=== PATIENT | female | born 1930 | race Caucasian/White ===

== ENCOUNTER 2017-04-05 06:46 | Inpatient (IN) | payer OTHER ==
[~2017-04-05 06:46] MED LIST: ACETAMINOPHEN 325 MG TAB PO ONE; DEXAMETHASONE 4 MG/ML VIAL IVP ONE; FAMOTIDINE 20 MG TAB PO ONE; ROPIVACAINE 0.2% 80 MG, EPINEPHrine 0.2 MG in SYRINGE 0 ML IU ONE; ROPIVACAINE 0.2% 80 MG, EPINEPHrine 0.2 MG, KETOROLAC TROMETHAMINE 30 MG in SYRINGE 0 ML IU ONE; TRANEXAMIC ACID 3,000 MG in NS 50 ML IRR ONE; ceFAZolin 2 GM/SWFI 2 GM/20 ML SYR IVP ONE
[2017-04-05] MEDS ORDERED: ACETAMINOPHEN 325 MG TAB PO ONE (07:21)
[2017-04-05] MEDS ORDERED: FAMOTIDINE 20 MG TAB PO ONE (07:21)
[2017-04-05] MEDS ORDERED: ceFAZolin 2 GM/SWFI 2 GM/20 ML SYR IVP ONE (07:21)
[2017-04-05] MEDS ORDERED: DEXAMETHASONE 4 MG/ML VIAL IVP ONE (07:21)
[2017-04-05] MEDS ORDERED: LIDOCAINE 1% 2 ML INJ ID PRN (07:22)
[2017-04-05] MEDS ORDERED: LR 1,000 ML IV ONE (07:22)
--- NOTE | 2017-04-05 07:24 | PDHPUP ---
History & Physical Update H&P update statement: This history and physical update is based on an assessment of the patient which was completed after admission or registration (within 24 hours), but prior to the surgery/procedure. H&P update: H&P reviewed & patient examined, no change in patient's condition since H&P completed
[2017-04-05] MEDS ORDERED: TRANEXAMIC ACID 3,000 MG/50 ML BAG IRR ONE (07:57)
[2017-04-05] MEDS ORDERED: MIDAZOLAM 2 MG/2 ML VIAL ONE (08:53)
[2017-04-05] MEDS ORDERED: MIDAZOLAM 2 MG/2 ML VIAL IVP ONE (08:53)
[2017-04-05] MEDS ORDERED: fentaNYL 100 MCG/2 ML INJ ONE ×2 (08:55→11:33)
[2017-04-05] MEDS ORDERED: PROPOFOL 200 MG/20 ML VIAL ONE ×3 (08:56→09:55)
[2017-04-05] MEDS ORDERED: PHENYLEPHRINE HCL 100 MCG/ML SYR IVP PRN (09:31)
[2017-04-05] MEDS ORDERED: DEXAMETHASONE 4 MG/ML VIAL IVP PRN (09:31)
[2017-04-05] MEDS ORDERED: NALOXONE HCL 0.4 MG/ML INJ IVP PRN (09:31)
[2017-04-05] MEDS ORDERED: HYDROmorphONE/DILAUDID 1 MG/ML INJ IVP PRN (09:31)
[2017-04-05] MEDS ORDERED: ALBUTEROL 3 ML DEYVIAL IH PRN (09:31)
[2017-04-05] MEDS ORDERED: fentaNYL 100 MCG/2 ML INJ IVP PRN (09:31)
[2017-04-05] MEDS ORDERED: epHEDrine SULFATE 10 MG/ML SYR IVP PRN (09:31)
--- NOTE | 2017-04-05 09:46 | PDANEPAE ---
ANE History of Present Illness here for R MARIO ANE Past Medical History - Cardiovascular History Hx Hypertension: Yes Hx Arrhythmias: No Hx Chest Pain: No Hx Coronary Artery / Peripheral Vascular Disease: No Hx CHF / Valvular Disease: No Hx Palpitations: Yes Cardiovascular History Comment: NO RECENT PALPITATIONS SINCE TAKING CARDIZEM. HYPERLIPIDEMIA - Pulmonary History Hx COPD: No Hx Asthma/Reactive Airway Disease: Yes Hx Recent Upper Respiratory Infection: No Hx Oxygen in Use at Home: No Hx Sleep Apnea: Yes Sleep Apnea Screening Result - Last Documented: Positive Pulmonary History Comment: SEASONAL ALLERGIES W/ASTHMA IN [place]. POS SLEEP APNEA W/NITE-GUARD - Neurologic History Hx Cerebrovascular Accident: No Hx Seizures: No Hx Dementia: No - Endocrine History Hx Diabetes: Yes Endocrine History Comment: HYPOTHYROID - Renal History Hx Renal Disorders: Yes Renal History Comment: ELEV CREATININE LEVELS IN PAST - Liver History Hx Hepatic Disorders: No - Neurological & Psychiatric Hx Hx Neurological and Psychiatric Disorders: No - Cancer History Hx Cancer: No - Congenital Disorder History Hx Congenital Disorders: No - GI History Hx Gastrointestinal Disorders: Yes Gastrointestinal History Comment: TAKES LACTASE & ACIDOPHYLLUS WORKS TO SETTLE STOMACH - Other Health History Other Health History: OSTEOARTHRITIS. RHEUMATOID ARTHRITIS - Chronic Pain History Chronic Pain: Yes (OSTEOARTHRITIS HIP & BACK) - Surgical History Prior Surgeries: HERNIA. PARTIAL RIB RESECTION ANE Review of Systems Review of systems is: negative Review of Systems: - Exercise capacity Exercise capacity: <4 METS METS (RN): 4 METS ANE Patient History - Allergies Allergies/Adverse Reactions: alendronate sodium [From Fosamax] Allergy (Verified 03/09/17 11:33) ULCERS denosumab [From Prolia] Allergy (Verified 03/09/17 11:33) Anaphylaxis risedronate sodium [From Actonel] Allergy (Verified 03/09/17 11:33) ULCERS - Home Medications Home medications: home medication list seen and reviewed Home Medications: Albuterol [Proventil Inhaler HFA (*)] 1 - 2 puffs IH DAILY PRN 03/09/17 [Last Taken Unknown] Calcium Carbonate [Oyster Shell Calcium 500 mg (*)] 500 mg PO DAILY 03/09/17 [ Last Taken 03/29/17] Diltiazem Cd [Cardizem ER 120 MG (*)] 120 mg PO BID 03/09/17 [Last Taken 05:00] Hydrocodone/APAP 5/325 [[place]leans 5/325 (*)] 0.5 each PO TID PRN 03/09/17 [Last Taken 04/04/17 19:00] Lactase [Lactase 3000 Unit (*)] 3,000 unit PO DAILY 03/09/17 [Last Taken 08:00] Leflunomide [Arava 20 mg (*)] 20 mg PO DAILY 03/09/17 [Last Taken 04/04/17 08:00 ] Levothyroxine [Synthroid 50 mcg (*)] 50 mcg PO DAILY06 03/09/17 [Last Taken 05:00] Lisinopril [Zestril 20 mg (*)] 20 mg PO DAILY 03/09/17 [Last Taken 04/04/17 08: 00] Montelukast Sodium [Singulair 10 mg (*)] 10 mg PO DAILY@1800 03/09/17 [Last Taken 04/04/17 08:00] Multivitamins [Multivitamin (*)] 1 each PO DAILY 03/09/17 [Last Taken 03/29/17] guanFACINE HCL [Guanfacine HCl 1 MG (*)] 1 mg PO HS 03/09/17 [Last Taken 22:00] - NPO status NPO Status: no food or drink >8 hours NPO Since - Liquids (Date): 04/04/17 NPO Since - Liquids (Time): 19:00 NPO Since - Solids (Date): 04/04/17 NPO Since - Solids (Time): 19:00 - Smoking Hx Smoking Status: Former smoker - Family Anes Hx Family Hx Anesthesia Complications: NEG ANE Labs/Vital Signs - Vital Signs Vital Signs: reviewed preoperatively; see RN documention for details Blood Pressure: 145/93 Heart Rate: 80 Respiratory Rate: 20 O2 Sat (%): 91 Height: 152.4 cm Weight: 50.802 kg ANE Physical Exam - Airway Neck exam: FROM Mallampati Score: Class 1 - Pulmonary Pulmonary: no respiratory distress - Cardiovascular Cardiovascular: regular rate and rhythym - ASA Status ASA Status: II ANE Anesthesia Plan Anesthesia Plan: spinal
[2017-04-05] MEDS ORDERED: ALBUTEROL 60 PUFFS/8 GM MDI IH PRN (10:14)
[2017-04-05] MEDS ORDERED: PROMETHAZINE HCL 25 MG/ML INJ IVP PRN (10:32)
[2017-04-05] MEDS ORDERED: TEMAZEPAM 15 MG CAP PO PRN (10:32)
[2017-04-05] MEDS ORDERED: diphenhydrAMINE 25 MG CAP PO PRN (10:32)
[2017-04-05] MEDS ORDERED: POLYETHYLENE GLYCOL 3350 17 GM PKT PO PRN (10:32)
[2017-04-05] MEDS ORDERED: DIPHENOXYLATE/ATROPINE LOMOTIL 1 TAB PO PRN (10:32)
[2017-04-05] MEDS ORDERED: CYCLOBENZAPRINE 10 MG TAB PO PRN (10:32)
[2017-04-05] MEDS ORDERED: PROMETHAZINE HCL 25 MG SUPPR PR PRN (10:32)
[2017-04-05] MEDS ORDERED: MAGNESIUM HYDROXIDE 30 ML UDCUP PO PRN (10:32)
[2017-04-05] MEDS ORDERED: LACTULOSE 20 GM/30 ML UDCUP PO PRN (10:32)
[2017-04-05] MEDS ORDERED: METOCLOPRAMIDE 10 MG/2 ML VIAL IVP PRN (10:32)
[2017-04-05] MEDS ORDERED: BISACODYL 10 MG SUPP PR PRN (10:32)
[2017-04-05] MEDS ORDERED: ONDANSETRON DISINTEGRATING 4 MG TAB PO PRN (10:32)
[2017-04-05] MEDS ORDERED: ONDANSETRON 4 MG/2 ML VIAL IVP PRN (10:32)
--- NOTE | 2017-04-05 10:32 | POSTOPPROG ---
Post Op Note Date of Operation: 04/05/17 Surgeon: Howie Sparrow Wood Boring Machine Operator: dianne sparrow Anesthesiologist: dr chinchilla Anesthesia: Spinal Pre-op Diagnosis: Right hip OA Post-op Diagnosis: same Indication: right hip pain due to OA that failed conservative measures Procedure: R MARIO ant approach Findings: severe hip OA Inf/Abcess present in the surg proc area at time of surgery?: No EBL: 100-500
[2017-04-05] MEDS ORDERED: LR 1,000 ML IV SCH (11:00)
[2017-04-05] MEDS: ACETAMINOPHEN 325 MG TAB PO SCH ×3 (13:24→23:35)
[2017-04-05] MEDS: oxyCODONE IR 5 MG TAB PO PRN ×2 (13:25→23:37)
[2017-04-05] MEDS ORDERED: ceFAZolin 2 GM/DEXTROSE 100 ML IV SCH (14:00)
--- NOTE | 2017-04-05 14:08 | POSTANESTH ---
Post Anesthetic Evaluation Cardiovascular Status: Normal, Stable Respiratory Status: Normal, Stable Level of Consciousness/Mental Status: Can Participate in Eval Pain Control: Adequate, Prn Tx Ordered Nausea/Vomiting Control: Adequate, Prn Tx Ordered Complications Possibly Related to Anesthesia: None Noted
[2017-04-05] MEDS: ceFAZolin 2 GM/SWFI 2 GM/20 ML SYR IVP SCH ×2 (16:19→23:36)
--- NOTE | 2017-04-05 17:08 | ASMTCMCOM ---
CM Note CM Note Notes: Referrals sent to [facility] and [facility] in [facility] as pt indicated theses were her SNF preferences in surgery pre-call. Pt indicated interest in [facility] also but they not take pt [employer] Plan. CM to follow up with pt tomorrow. Insurance authorization may be required for SNF d/c. Date Signed: 04/05/2017 05:08 PM Electronically Signed By:LUIS ANTONIO Casiano
[2017-04-05] MEDS ORDERED: MONTELUKAST SODIUM 10 MG PO SCH (18:00)
[2017-04-05] MEDS ORDERED: MONTELUKAST SODIUM 10 MG TAB PO SCH (18:00)
[2017-04-05] MEDS: FAMOTIDINE 20 MG TAB PO SCH (20:26)
[2017-04-05] MEDS: ASPIRIN 81 MG CHEWABLE TAB PO SCH (20:26)
[2017-04-05] MEDS: SENNOSIDES/DOCUSATE SODIUM TAB PO SCH (20:26)
[2017-04-05] MEDS: DILTIAZEM CD 120 MG CAP PO SCH (20:27)
--- NOTE | 2017-04-06 02:40 | GOP ---
[f rep st] OPERATIVE REPORT DATE OF OPERATION: 04/05/2017 SURGEON: Radha Phelps MD OFFICE COMMUNICATION PROFESSOR: Melanie Phelps PA-C ANESTHESIA: Spinal. PREOPERATIVE DIAGNOSIS: Right hip osteoarthritis. POSTOPERATIVE DIAGNOSIS: Right hip osteoarthritis. PROCEDURE PERFORMED: Right total hip arthroplasty with x-ray. FINDINGS: ESTIMATED BLOOD LOSS: 200 cc. INDICATIONS: The patient has progressively worsening arthritis of the hip which has failed medical management. The patient understands the treatment options including continued non-operative care and has selected surgical intervention. The patient has decided to undergo total hip arthroplasty via the direct anterior approach, understanding the risks of the procedure including , but not limited to, neurovascular injury, infection, persistent pain, component wear and loosening, deep venous thrombosis, pulmonary embolism, limb length inequality, hip instability (including dislocation), and intra-operative fractures. DESCRIPTION OF PROCEDURE: After proper identification of the patient including verification and marking the surgical site, the patient was brought to the operating room and placed in the supine position. All bony prominences were well padded. Anesthesia was induced without complication and intravenous prophylactic antibiotics were administered prior to skin incision. The operative leg was placed in the Trumpf Arch table extension and the well leg in a Yellofin leg redmond. The patient was prepped and draped in the usual sterile fashion. The C-arm was draped for intra-operative fluoroscopy to check acetabular position, femoral component position including leg length and femoral offset. Attention was then drawn to surgical exposure of the hip. An incision was made with a #10 Bard Nick blade starting 3 cm lateral and 3 cm distal to the anterior superior iliac spine measuring 8-10 cm and coursing distally toward the greater trochanter. The skin and subcutaneous tissues were divided sharply down to the fascia giovanna. The fascia giovanna was incised in line with the skin incision exposing the underlying tensor fascia giovanna muscle. The muscle was bluntly elevated from the fascia and the first extracapsular Cobra retractor was placed laterally at the junction of the superior femoral neck and greater trochanter. The lateral femoral circumflex vessels were identified, cauterized , and divided with the Aquamantys bipolar cautery. The deep investing fascia of the TFL was divided to allow proper mobilization of the muscle preventing damage during the retraction. The reflected head of the rectus femoris muscle was elevated off the anterior hip capsule and a medial Cobra retractor was placed just proximal to the lesser trochanter. The anterior capsulotomy was made sharply from the superolateral acetabulum to the saddle junction of the superior femoral neck and greater trochanter, then coursing inferomedial towards the lesser trochanter. The retractors were then placed in the intracapsular position for femoral neck osteotomy. Corresponding to pre-operative templating, the osteotomy was made with the oscillating saw carefully protecting the greater trochanter and soft tissues. The femoral head was removed from the acetabulum with a corkscrew and confirmed to be severely arthritic with exposed bone, deformity and osteophytes. Similar findings were confirmed in the acetabulum. The Arch table extension was then placed in 40 degrees external rotation. Attention was then drawn to the acetabular preparation. After placement of the anterior and posterior Cobra retractors outside the labrum and intracapsular, the circumferential labrum was removed sharply. The foveal contents were then removed and hemostasis obtained with cautery. The first reamer selected was sized using the removed femoral head. Reaming began with medialization and then commenced in 2 mm increments at 45 degrees of abduction and 15 degrees of anteversion using fluoroscopic navigation. Reaming ceased 1 mm less than the definitive acetabular component and corresponded to the pre-operative templating. The final acetabular component was inserted using fluoroscopy to achieve proper orientation yielding excellent purchase and stability in the acetabulum. The final acetabular liner was then placed and its seating confirmed. Attention was then turned to the femur. The Arch table extension was placed in extension and adduction, delivering the osteotomized femoral neck into the wound. A 2-pronged femoral elevator was placed at the calcar and another at the tip of the greater trochanter. The posterolateral capsule was released with cautery allowing mobilization of the femur lateral and anterior for preparation. The external rotators were visualized and preserved. A curette and rongeur were used to open the starting point for broaching. Serial broaching started with the #0 broach and ended with the broach that exhibited excellent fit in the proximal femur. A change in pitch during mallet strikes was accompanied by the inability to advance the broach any further. The trial reduction was performed and fluoroscopic navigation was utilized to check limb length. Adjustments were made to equalize limb length accordingly. After the final trials were accepted they were removed and the wound was copiously lavaged. The femoral component was seated to the same depth as the final broach and the femoral head was impacted onto the clean trunnion. The hip was then reduced for the final time and once more fluoroscopy was used to check that limb length equality was achieved. The wound was irrigated and closed in layers, the fascia giovanna with 2-0 Quill, the subcutaneous tissue with 2-0 Quill, and the skin with Dermabond. Sterile dressings were applied. Final sharps and sponge counts were accurate. The patient was then transferred to a hospital bed and brought to the recovery room in stable condition. IMPLANTS: Accolade II, size 5 at 127. Acetabular component a 52 mm Tritanium. Liner is a Trident X3, 32 mm. The head is a Biolox Delta, 32 mm -4. /[id number]/MODL MTDD
[2017-04-06] MEDS: oxyCODONE IR 5 MG TAB PO PRN ×3 (02:54→14:54)
[2017-04-06] MEDS: ACETAMINOPHEN 325 MG TAB PO SCH ×2 (05:37→11:42)
[2017-04-06] MEDS ORDERED: LEVOTHYROXINE 50 MCG TAB PO SCH (06:00)
--- NOTE | 2017-04-06 08:26 | GDS ---
[f rep st] DISCHARGE SUMMARY ADMISSION DIAGNOSIS: Right hip osteoarthritis. DISCHARGE DIAGNOSIS: Right hip osteoarthritis. PROCEDURE: Right total hip arthroplasty. VTE PROPHYLAXIS: Aspirin 81 mg twice daily for 4 weeks recommended. BRIEF DESCRIPTION OF HOSPITAL STAY: Patient was admitted for an elective joint arthroplasty. The pa sterling tolerated the procedure well and has passed physical therapy. The patient was given appropriat e antibiotic prophylaxis and venous thromboembolism prophylaxis. The patient's pain was well control led on oral pain medication, patient was holding down food, and had urinated. Decision was made to d ischarge the patient. The patient was given post-operative prescriptions pre-operatively. PLAN: Please follow up as scheduled, April 27 at 11:15 a.m. /[id number]/MODL
--- NOTE | 2017-04-06 08:49 | PDIAF ---
- Diagnosis Diagnosis: s/p R MARIO Code Status: Full Code - Medication Management Discharge Medications: Medications to Continue on Transfer Albuterol [Proventil Inhaler HFA (*)] 1 - 2 puffs IH DAILY PRN 03/09/17 [Last Taken Unknown] Calcium Carbonate [Oyster Shell Calcium 500 mg (*)] 500 mg PO DAILY 03/09/17 [ Last Taken 03/29/17] Diltiazem Cd [Cardizem ER 120 MG (*)] 120 mg PO BID 03/09/17 [Last Taken 05:00] Lactase [Lactase 3000 Unit (*)] 3,000 unit PO DAILY 03/09/17 [Last Taken 08:00] Leflunomide [Arava 20 mg (*)] 20 mg PO DAILY 03/09/17 [Last Taken 04/04/17 08:00 ] Levothyroxine [Synthroid 50 mcg (*)] 50 mcg PO DAILY06 03/09/17 [Last Taken 05:00] Lisinopril [Zestril 20 mg (*)] 20 mg PO DAILY 03/09/17 [Last Taken 04/04/17 08: 00] Montelukast Sodium [Singulair 10 mg (*)] 10 mg PO DAILY@1800 03/09/17 [Last Taken 04/04/17 08:00] Multivitamins [Multivitamin (*)] 1 each PO DAILY 03/09/17 [Last Taken 03/29/17] guanFACINE HCL [Guanfacine HCl 1 MG (*)] 1 mg PO HS 03/09/17 [Last Taken 22:00] Acetaminophen [Tylenol 325mg (*)] 650 mg PO Q6HRS tab 04/06/17 [Last Taken Unknown] Aspirin [Aspirin 81mg (*)] 81 mg PO BID tab.chew 04/06/17 [Last Taken Unknown] Cyclobenzaprine [Flexeril 10 MG (*)] 10 mg PO Q8HRS PRN tab 04/06/17 [Last Taken Unknown] Ondansetron Odt [Zofran Odt 4 mg (*)] 4 mg PO Q4HRS PRN tab 04/06/17 [Last Taken Unknown] Sennosides/Docusate Sodium [Senokot-S] 1 - 2 tab PO BID tab 04/06/17 [Last Taken Unknown] oxyCODONE IR [Oxycodone Ir (*)] 5 - 10 mg PO Q3HRS PRN tab 04/06/17 [Last Taken Unknown] Discharge Medications: Refer to the Discharge Home Medication list for PRN reason. - Orders Diet Recommendation: no restrictions on diet Diet Texture: Regular Texture Diet Additional: Joint Protocol-Hip Replacement. Follow up with Dr. Harden office as scheduled. After surgery instructions: Take Aspirin 81mg by mouth morning and evening for 4 weeks (helps to prevent blood clots). Wear thigh high BIBIANA hose on both legs during the daytime for 2 weeks (helps to prevent blood clots and decrease swelling in the surgical leg). It is ok to remove BIBIANA hose at night time to give your legs a break. It is common for swelling and bruising to occur in the entire surgical leg even extending to the foot, if concerned call Dr. Collier office [phone]. Weight bearing as tolerated. Use a walker for 7-14 days. Do exercises in the book 2-3 times a day. Ice at least 3-5 times a day for 30 minutes each time, if not more often. If you have further questions that are not addressed here, please look at the information packet handed to you at the preop appointment. Most will be answered on the FAQs, after surgery instructions and incision care pages. You may also call Dr. Dereck arndt with questions as well. *IF YOU HAVE A LIFE THREATENING EMERGENCY, CALL 911. FOR NON-LIFE THREATENING ISSUES, PLEASE CALL DR. HARDEN OFFICE FIRST. A PHYSICIAN IS PYROTECHNIST 03/10. Incision/ Dressing Care: May shower tomorrow, Incision dressing is waterproof. Do not soak in water, but shower is ok. Keep the incision (rivas) dressing clean and dry. If the incision dressing gets soiled or wet underneath, change dressing to the dressing given to you by the hospital. (rivas dressing will turn black if drainage occurs). Remove incision dressing (rivas one) two weeks after surgery. Leave steri strips alone. They will fall off on their own. Do not have anyone else remove the incision dressing prior to the stated recommendation (2 weeks after surgery). If there are incision concerns, contact Dr. Collier office. (Melanie or Dr. Phelps may remove earlier if concerns arise). If incision site (rivas dressing) has drainage, call Dr. Collier office, . Melanie and Dr. Phelps may ask you to come into the office for further evaluation - Follow Up Care Current Providers and Referrals: Julia Miller MD [Primary Care Provider] - Melanie Phelps PA [Physician Central Office Associate] - 04/27/17 11:15 am
--- NOTE | 2017-04-06 08:57 | SOAPPROG ---
SOAP Progress Note Assessment/Plan: Assessment: Patient is doing well POD 1 s/p R MARIO Pain management: pain is well controlled on oral pain meds. VTE ppx: recommend aspirin 81 mg BID for 4 weeks, cont BIBIANA and SCDs Anemia: level is expected initially postop. Asymptomatic. Continue to monitor D/c planning: d/c to home today pending release from PT postop urinary retention: straight cath'd yesterday, resolved today Plan: 04/06/17 08:56 Subjective: Nunu is doing well today, denies SOB, chest pain and N/V. Objective: Vital Signs Temp Pulse Resp BP Pulse Ox 36.9 C 73 18 153/78 H 92 04/06/17 08:00 04/06/17 08:00 04/06/17 08:00 04/06/17 08:00 04/06/17 08:00 Laboratory Results 04/06/17 05:12 04/06/17 05:12 04/05/17 04/06/17 04/07/17 05:59 05:59 05:59 Intake Total 2750 700 Output Total 1650 Balance 1100 700 RLE: incision dressing is clean and dry, NVI, +pf/df ICD10 Worksheet Patient Problems: Problems Problem Status Onset Primary localized osteoarthritis of right hip Acute
[2017-04-06] MEDS: FAMOTIDINE 20 MG TAB PO SCH (09:00)
[2017-04-06] MEDS ORDERED: LEFLUNOMIDE 20 MG TAB PO SCH (09:00)
[2017-04-06] MEDS: SENNOSIDES/DOCUSATE SODIUM TAB PO SCH (09:00)
[2017-04-06] MEDS ORDERED: LISINOPRIL 20 MG TAB PO SCH (09:00)
[2017-04-06] MEDS: DILTIAZEM CD 120 MG CAP PO SCH (09:00)
[2017-04-06] MEDS: ASPIRIN 81 MG CHEWABLE TAB PO SCH (09:00)
--- NOTE | 2017-04-06 10:02 | ASMTCMCOM ---
CM Note CM Note Notes: Pt accepted at first choice SNF [facility] pending insurance auth. D/c orders are in and transport can be scheduled when the ins auth is obtained. Pt and RN updated. CM to follow. Date Signed: 04/06/2017 10:01 AM Electronically Signed By:LUIS ANTONIO Casiano
[2017-04-06 11:59] VITALS: BP 139/79; PULSE 87; RESP 16; TEMP 97.7; O2SAT 91
--- NOTE | 2017-04-06 16:38 | ASDISCHSUM ---
Discharge Information Plan Status:SNF Medically Cleared to Leave: Discharge Date:04/06/2017 03:12 PM CM D/C Disposition:Nursing Home Facility ADT D/C Disposition:Nursing Home Facility Projected Discharge Date:04/06/2017 11:00 AM Transportation at D/C:Wheelchair Van Discharge Delay Reason: Follow-Up Date:04/06/2017 11:00 AM Discharge Slot: Final Diagnosis: Placement Information Referral Type:*Longterm/SNF Referral ID:[id number] Provider Name:[facility]//[facility] Address 1:[address] [place] [address] Address 2: City:[place] Selection Factors: State:[place] Patient Contact Information Contact Name:SETH Relationship:Mai Address: Work Phone: City: [facility] Phone: State/Zip Code: Email: Financial Information Financial Class:Medicare Advantage Plans Primary Plan Desc:EMILY ARANGO MEDICARE Primary Plan Number:[id number] Secondary Plan Desc: Secondary Plan Number: Assessment Information [facility] CM Progress Note CM Note CM Note Notes: Referrals sent to [facility] and [facility] in [facility] as pt indicated theses were her SNF preferences in surgery pre-call. Pt indicated interest in [facility] also but they not take pt Emily Campos CM to follow up with pt tomorrow. Insurance authorization may be required for SNF d/c. Date Signed: 04/05/2017 05:08 PM Electronically Signed By:LUIS ANTONIO Casiano [facility] CM Progress Note CM Note CM Note Notes: Pt accepted at first choice SNF [facility] pending insurance auth. D/c orders are in and transport can be scheduled when the ins auth is obtained. Pt and RN updated. CM to follow. Date Signed: 04/06/2017 10:01 AM Electronically Signed By:LUIS ANTONIO Casiano [facility] CM Progress Note CM Note CM Note Notes: [facility] receives ins auth, transport scheduled for 15:00. Orders sent in [employer]. Date Signed: 04/06/2017 04:37 PM Electronically Signed By:LUIS ANTONIO Casiano Intervention Information
== END 2017-04-06 15:12 | DRG 470 ==
LOC: F3N 06:46
PROVIDERS: ADMIT Orthopaedic Surgery; ATTEND Orthopaedic Surgery
PROC: 0SR904Z Replacement of Right Hip Joint with Ceramic on Polyethylene Synthetic Substitute, Open Approach (ICD-10-PCS; principal; 2017-04-05 09:15)
DX: M16.11 Unilateral primary osteoarthritis, right hip (principal); I10 Essential (primary) hypertension; E78.5 Hyperlipidemia, unspecified; J45.909 Unspecified asthma, uncomplicated; E11.9 Type 2 diabetes mellitus without complications; E03.9 Hypothyroidism, unspecified
CPT/HCPCS: 97116-GP; 97161-GP; 97165-GO; 97530-GP; J0171; J0690; J1100; J2250; J2370; J2704; J2795; J3010

== ENCOUNTER 2017-09-22 07:48 | Inpatient (IN) | payer OTHER ==
[~2017-09-22 07:48] MED LIST changes: -ACETAMINOPHEN 325 MG TAB PO ONE; -DEXAMETHASONE 4 MG/ML VIAL IVP ONE; -FAMOTIDINE 20 MG TAB PO ONE; -ROPIVACAINE 0.2% 80 MG, EPINEPHrine 0.2 MG, KETOROLAC TROMETHAMINE 30 MG in SYRINGE 0 ML IU ONE; +TRANEXAMIC ACID 3,000 MG in NS (SYRINGE) 50 ML IRR ONE; -TRANEXAMIC ACID 3,000 MG in NS 50 ML IRR ONE; -ceFAZolin 2 GM/SWFI 2 GM/20 ML SYR IVP ONE
[2017-09-22] MEDS ORDERED: TRANEXAMIC ACID 3,000 MG/50 ML BAG IRR ONE (07:53)
[2017-09-22] MEDS ORDERED: ACETAMINOPHEN 325 MG TAB PO ONE (08:08)
[2017-09-22] MEDS ORDERED: DEXAMETHASONE 4 MG/ML VIAL IVP ONE (08:08)
[2017-09-22] MEDS ORDERED: ceFAZolin 2 GM/DEXTROSE 100 ML IV ONE (08:08)
[2017-09-22] MEDS ORDERED: LR 1,000 ML IV ONE (08:10)
[2017-09-22 09:15] LABS: PLATELET COUNT 299 10^3/uL (150-400)
--- NOTE | 2017-09-22 09:50 | PDANEPAE ---
ANE History of Present Illness L MARIO ANE Past Medical History - Cardiovascular History Hx Hypertension: Yes Hx Arrhythmias: No Hx Chest Pain: No Hx Coronary Artery / Peripheral Vascular Disease: No Hx CHF / Valvular Disease: No Hx Palpitations: No Cardiovascular History Comment: HYPERLIPIDEMIA - Pulmonary History Hx COPD: No Hx Asthma/Reactive Airway Disease: Yes Hx Recent Upper Respiratory Infection: No Hx Oxygen in Use at Home: No Hx Sleep Apnea: No Sleep Apnea Screening Result - Last Documented: Positive Pulmonary History Comment: SEASONAL ALLERGIES W/ASTHMA IN [place]. POS SLEEP APNEA W/NITE-GUARD. INSTRUCTED TO BRING MOUTH GUARD DAY OF SURGERY - Neurologic History Hx Cerebrovascular Accident: No Hx Seizures: No Hx Dementia: No - Endocrine History Hx Diabetes: Yes Endocrine History Comment: HYPOTHYROID - Renal History Hx Renal Disorders: Yes Renal History Comment: ELEV CREATININE LEVELS IN PAST - Liver History Hx Hepatic Disorders: No - Neurological & Psychiatric Hx Hx Neurological and Psychiatric Disorders: No - Cancer History Hx Cancer: No - Congenital Disorder History Hx Congenital Disorders: No - GI History Hx Gastrointestinal Disorders: Yes Gastrointestinal History Comment: TAKES LACTASE & ACIDOPHYLUS WORKS TO SETTLE STOMACH - Other Health History Other Health History: OSTEOARTHRITIS. RHEUMATOID ARTHRITIS. SPINAL STENOSIS - Chronic Pain History Chronic Pain: Yes (LT HIP/LUMBAR REGION) - Surgical History Prior Surgeries: LT ING HERNIA 05/2017 AT [facility]. RT TOTAL HIP . RT INGHERNIA. PARTIAL RIB RESECTION FOR TUMOR ANE Review of Systems Review of Systems: - Exercise capacity Exercise capacity: >=4 METS ANE Patient History - Allergies Allergies/Adverse Reactions: alendronate sodium [From Fosamax] Allergy (Verified 03/09/17 11:33) ULCERS denosumab [From Prolia] Allergy (Verified 03/09/17 11:33) Anaphylaxis risedronate sodium [From Actonel] Allergy (Verified 03/09/17 11:33) ULCERS - Home Medications Home medications: home medication list seen and reviewed Home Medications: Albuterol [Proventil Inhaler HFA (*)] 1 - 2 puffs IH DAILY PRN 03/09/17 [Last Taken 09/15/17] Diltiazem Cd [Cardizem ER 120 MG (*)] 120 mg PO BID 03/09/17 [Last Taken ] Leflunomide [Arava 20 mg (*)] 20 mg PO DAILY 03/09/17 [Last Taken 09/22/17] Levothyroxine [Synthroid 50 mcg (*)] 50 mcg PO DAILY06 03/09/17 [Last Taken ] Lisinopril [Zestril 20 mg (*)] 20 mg PO DAILY 03/09/17 [Last Taken 09/22/17] Montelukast Sodium [Singulair 10 mg (*)] 10 mg PO DAILY 03/09/17 [Last Taken 02/27] Multivitamins [Multivitamin (*)] 1 each PO DAILY 03/09/17 [Last Taken 09/13/17] guanFACINE HCL [Guanfacine HCl 1 MG (*)] 1 mg PO HS 03/09/17 [Last Taken ] Acetaminophen [Tylenol 325mg (*)] 650 mg PO DAILY 09/08/17 [Last Taken Unknown] Cholecalciferol Vit D3 [Vitamin D3 (*)] 1,000 units PO DAILY 09/08/17 [Last Taken 09/13/17] Herbals/Supplements -Info Only 1 each PO DAILY 09/08/17 [Last Taken 09/13/17] Lactase [Lactase 3000 Unit (*)] 3,000 unit PO DAILY 09/08/17 [Last Taken ] Spironolactone [Aldactone 25 MG (*)] 25 mg PO DAILY 09/08/17 [Last Taken ] - NPO status NPO Since - Liquids (Date): 09/22/17 NPO Since - Liquids (Time): 06:00 NPO Since - Solids (Date): 09/21/17 NPO Since - Solids (Time): 18:00 - Anes Hx Anes Hx: no prior problems - Smoking Hx Smoking Status: Former smoker - Alcohol Use Alcohol Use: Rarely - Family Anes Hx Family Anes Hx: none Family Hx Anesthesia Complications: NEG ANE Labs/Vital Signs - Labs Result Diagrams: 09/22/17 08:54 09/22/17 08:54 - Vital Signs Blood Pressure: 103/61 Heart Rate: 73 Respiratory Rate: 16 O2 Sat (%): 96 Height: 162.56 cm Weight: 48.988 kg ANE Physical Exam - Airway Neck exam: FROM Mallampati Score: Class 2 Mouth exam: normal dental/mouth exam - Pulmonary Pulmonary: no respiratory distress, clear to auscultation - Cardiovascular Cardiovascular: regular rate and rhythym, no murmur, rub, or gallop - ASA Status ASA Status: III ANE Anesthesia Plan Anesthesia Plan: GA with mask, spinal
[2017-09-22] MEDS ORDERED: MIDAZOLAM 2 MG/2 ML VIAL IVP ONE (09:54)
[2017-09-22] MEDS ORDERED: PROPOFOL/EMULSION 500 MG/50 ML BOTTLE IV ONE (10:00)
[2017-09-22] MEDS ORDERED: PROPOFOL 200 MG/20 ML VIAL ONE (11:24)
[2017-09-22] MEDS ORDERED: POLYETHYLENE GLYCOL 3350 17 GM PKT PO PRN (11:32)
[2017-09-22] MEDS ORDERED: ONDANSETRON DISINTEGRATING 4 MG TAB PO PRN (11:32)
[2017-09-22] MEDS ORDERED: TEMAZEPAM 15 MG CAP PO PRN (11:32)
[2017-09-22] MEDS ORDERED: DIPHENOXYLATE/ATROPINE LOMOTIL 1 TAB PO PRN (11:32)
[2017-09-22] MEDS ORDERED: diphenhydrAMINE 25 MG CAP PO PRN (11:32)
[2017-09-22] MEDS ORDERED: PROMETHAZINE HCL 25 MG/ML INJ IVP PRN (11:32)
[2017-09-22] MEDS ORDERED: LACTULOSE 20 GM/30 ML UDCUP PO PRN (11:32)
[2017-09-22] MEDS ORDERED: PROMETHAZINE HCL 25 MG SUPPR PR PRN (11:32)
[2017-09-22] MEDS ORDERED: METOCLOPRAMIDE 10 MG/2 ML VIAL IVP PRN (11:32)
[2017-09-22] MEDS ORDERED: MAGNESIUM HYDROXIDE 30 ML UDCUP PO PRN (11:32)
[2017-09-22] MEDS ORDERED: ONDANSETRON 4 MG/2 ML VIAL IVP PRN ×2 (11:32→11:38)
[2017-09-22] MEDS ORDERED: BISACODYL 10 MG SUPP PR PRN (11:32)
--- NOTE | 2017-09-22 11:32 | POSTOPPROG ---
Post Op Note Date of Operation: 09/22/17 Surgeon: Howie Sparrow Office Clerk: dianne sparrow Anesthesiologist: dr. frank Anesthesia: Spinal Pre-op Diagnosis: left hip OA Post-op Diagnosis: same Indication: left hip pain Procedure: L MARIO ant approach Findings: severe hip OA Inf/Abcess present in the surg proc area at time of surgery?: No EBL: 100-500
[2017-09-22] MEDS ORDERED: oxyCODONE IR 5 MG TAB PO PRN (11:38)
[2017-09-22] MEDS ORDERED: NALOXONE HCL 0.4 MG/ML INJ IVP PRN (11:38)
[2017-09-22] MEDS ORDERED: HYDROCODONE/APAP 5/325 TAB PO PRN (11:38)
[2017-09-22] MEDS ORDERED: ACETAMINOPHEN 500 MG TAB PO PRN (11:38)
--- NOTE | 2017-09-22 11:40 | POSTANESTH ---
Post Anesthetic Evaluation Cardiovascular Status: Normal, Stable, Similar to Pre-Op Cond Respiratory Status: Normal, Stable, Similar to Pre-op Cond. Level of Consciousness/Mental Status: Can Participate in Eval, Alert and Oriented Pain Control: Adequate, Prn Tx Ordered Nausea/Vomiting Control: Adequate, Prn Tx Ordered Complications Possibly Related to Anesthesia: None Noted
[2017-09-22] MEDS ORDERED: NS W/ 20 KCl/L 1,000 ML IV SCH (11:45)
--- NOTE | 2017-09-22 11:56 | PDMN ---
Medical Necessity [place] [facility] [place], A-2 days. 87 y/o s/p Left Total Hip Arthroplasty Anterior Approach. Medicare Inpatient Only
[2017-09-22] MEDS ORDERED: LR 1,000 ML IV SCH (12:00)
[2017-09-22] MEDS ORDERED: fentaNYL 100 MCG/2 ML INJ ONE (12:11)
[2017-09-22] MEDS: fentaNYL 100 MCG/2 ML INJ IVP PRN ×3 (12:12→12:25)
[2017-09-22] MEDS ORDERED: ALBUTEROL 60 PUFFS/8 GM MDI IH PRN (13:45)
[2017-09-22] MEDS: NS 1,000 ML IV SCH ×2 (14:16→23:42)
[2017-09-22] MEDS: oxyCODONE IR 5 MG TAB PO PRN ×2 (14:35→22:12)
[2017-09-22] MEDS: ACETAMINOPHEN 325 MG TAB PO SCH ×2 (14:54→17:51)
--- NOTE | 2017-09-22 16:49 | ASMTCMCOM ---
CM Note CM Note Notes: Pt s/p L MARIO. PT rec SNF, pt SNF choice is [facility] where she has been in the past. Referral sent in [employer]. [facility] will need [employer] insurance authorization which will not be obtained (the earliest) until Monday. CM to follow. Date Signed: 09/22/2017 04:48 PM Electronically Signed By:LUIS ANTONIO Casiano
--- NOTE | 2017-09-22 17:46 | PDHOSCONS ---
History and Physical - Chief Complaint Acute hip pain - History of Present Illness Primary care provider: Dr. Julia Martin Primary metal bumper: Dr. Oliver Dempsey Primary orthopedic: Dr. Phelps HPI: 87-year-old female presenting with acute worsening of chronic pain located in her left hip, characterized as sharp, with associated reduction in range of motion and strength in that left lower extremity. Pain increased with ambulation, seen to have an onset of May of 2017 after she experienced a traumatic injury. The patient has been evaluated in the outpatient setting for hip surgery and received an outpatient cardiology consultation including an EKG and visit with Dr. Oliver Dempsey. In the days leading up to patient's hospitalization, she notes reduced oral intake, reduced urine output, secondary to heat and immobility. She otherwise denies any constipation and she reports she has been taking all of her home medications as prescribed. She had labs drawn preoperatively and then she proceeded to the OR for hip replacement surgery by Dr. Phelps today. Hospital Medicine has been consulted for medical comanagement. History Information - Allergies/Home Medication List Allergies/Adverse Reactions: alendronate sodium [From Fosamax] Allergy (Verified 03/09/17 11:33) ULCERS denosumab [From Prolia] Allergy (Verified 03/09/17 11:33) Anaphylaxis risedronate sodium [From Actonel] Allergy (Verified 03/09/17 11:33) ULCERS Home Medications: Albuterol [Proventil Inhaler HFA (*)] 1 - 2 puffs IH DAILY PRN 03/09/17 [Last Taken 09/15/17] Diltiazem Cd [Cardizem ER 120 MG (*)] 120 mg PO BID 03/09/17 [Last Taken ] Leflunomide [Arava 20 mg (*)] 20 mg PO DAILY 03/09/17 [Last Taken 09/22/17] Levothyroxine [Synthroid 50 mcg (*)] 50 mcg PO DAILY06 03/09/17 [Last Taken ] Lisinopril [Zestril 20 mg (*)] 20 mg PO DAILY 03/09/17 [Last Taken 09/22/17] Montelukast Sodium [Singulair 10 mg (*)] 10 mg PO DAILY 03/09/17 [Last Taken 02/27] Multivitamins [Multivitamin (*)] 1 each PO DAILY 03/09/17 [Last Taken 09/13/17] guanFACINE HCL [Guanfacine HCl 1 MG (*)] 1 mg PO HS 03/09/17 [Last Taken ] Acetaminophen [Tylenol 325mg (*)] 650 mg PO DAILY 09/08/17 [Last Taken Unknown] Cholecalciferol Vit D3 [Vitamin D3 (*)] 1,000 units PO DAILY 09/08/17 [Last Taken 09/13/17] Herbals/Supplements -Info Only 1 each PO DAILY 09/08/17 [Last Taken 09/13/17] Lactase [Lactase 3000 Unit (*)] 3,000 unit PO DAILY 09/08/17 [Last Taken ] Spironolactone [Aldactone 25 MG (*)] 25 mg PO DAILY 09/08/17 [Last Taken ] I have personally reviewed and updated: family history, medical history, social history, surgical history - Past Medical History hypertension Additional medical history: Chronic normocytic anemia baseline hemoglobin 11- 12. Chronic kidney disease stage 3, with fluctuating creatinine level, most recently 1.4 on 09/07/2017. Hypertension, with recent medication adjustment through Urgent Care initiation of Aldactone. History of severe acute kidney injury secondary to food poisoning with labile creatinine levels thereafter - Family History Additional family history: Right total hip arthroplasty March 2017. Abdominal hernia May of 2017. Injection in the left hip - Social History Smoking Status: Former smoker Alcohol Use: Rarely Drug Use: None Additional social history: Independent in her ADLs, lives in her own home, not particularly physically active, utilizes cane Review of Systems Review of Systems: ROS: 10pt was reviewed & negative except for what was stated in HPI & below Muscolosketal: Reports: joint pain Physical Exam Physical Exam: Temp Pulse Resp BP Pulse Ox 36.6 C 65 16 93/55 L 98 09/22/17 16:28 09/22/17 16:35 09/22/17 16:35 09/22/17 16:35 09/22/17 16:35 O2 (L/minute) 2 FIO2 (%) 2 Constitutional: no apparent distress, appears nourished, not in pain Eyes: PERRL, anicteric sclera, EOMI Ears, Nose, Mouth, Throat: moist mucous membranes, hearing normal, ears appear normal, no oral mucosal ulcers Cardiovascular: regular rate and rhythym, no murmur, rub, or gallop, No edema Respiratory: inspiratory crackles (Bilateral bases), No reduced air movement, No expiratory wheeze, No bronchial breath sounds, No respiratory distress Gastrointestinal: normoactive bowel sounds, soft, non-tender abdomen, no palpable masses, No distension Skin: No erythema, No induration, No other (No ecchymoses around left leg surgical site) Neurologic: AAOx3, sensation intact bilaterally, weakness (4/5 motor strength left lower extremity) Psychiatric: interacting appropriately, not anxious, not encephalopathic, thought process linear Lab Data & Imaging Review 09/22/17 08:54 09/22/17 08:54 WBC 4.94 10^3/uL (3.80-9.50) 09/22/17 08:54 RBC 3.15 10^6/uL (4.18-5.33) L 09/22/17 08:54 Hgb 9.8 g/dL (12.6-16.3) L 09/22/17 08:54 Hct 30.5 % (38.0-47.0) L 09/22/17 08:54 MCV 96.8 fL (81.5-99.8) 09/22/17 08:54 MCH 31.1 pg (27.9-34.1) 09/22/17 08:54 MCHC 32.1 g/dL (32.4-36.7) L 09/22/17 08:54 RDW 15.7 % (11.5-15.2) H 09/22/17 08:54 Plt Count 299 10^3/uL (150-400) 09/22/17 08:54 MPV 9.0 fL (8.7-11.7) 09/22/17 08:54 Neut % (Auto) 72.8 % (39.3-74.2) 09/22/17 08:54 Lymph % (Auto) 10.7 % (15.0-45.0) L 09/22/17 08:54 Butts % (Auto) 11.7 % (4.5-13.0) 09/22/17 08:54 Eos % (Auto) 3.6 % (0.6-7.6) 09/22/17 08:54 Baso % (Auto) 0.8 % (0.3-1.7) 09/22/17 08:54 Nucleat RBC Rel Count 0.0 % (0.0-0.2) 09/22/17 08:54 Absolute Neuts (auto) 3.60 10^3/uL (1.70-6.50) 09/22/17 08:54 Absolute Lymphs (auto) 0.53 10^3/uL (1.00-3.00) L 09/22/17 08:54 Absolute Monos (auto) 0.58 10^3/uL (0.30-0.80) 09/22/17 08:54 Absolute Eos (auto) 0.18 10^3/uL (0.03-0.40) 09/22/17 08:54 Absolute Basos (auto) 0.04 10^3/uL (0.02-0.10) 09/22/17 08:54 Absolute Nucleated RBC 0.00 10^3/uL (0-0.01) 09/22/17 08:54 Immature Gran % 0.4 % (0.0-1.1) 09/22/17 08:54 Immature Gran # 0.02 10^3/uL (0.00-0.10) 09/22/17 08:54 RBC/WBC/PLT Morphology TNP 09/22/17 08:54 Platelet Estimate TNP 09/22/17 08:54 Sodium 136 mEq/L (135-145) 09/22/17 08:54 Potassium 5.3 mEq/L (3.3-5.0) H 09/22/17 08:54 Chloride 109 mEq/L (97-110) 09/22/17 08:54 Carbon Dioxide 18 mEq/l (22-31) L 09/22/17 08:54 Anion Gap 9 mEq/L (8-16) 09/22/17 08:54 BUN 40 mg/dL (7-23) H 09/22/17 08:54 Creatinine 1.8 mg/dL (0.6-1.0) H 09/22/17 08:54 Estimated GFR 27 09/22/17 08:54 Glucose 77 mg/dL (70-100) 09/22/17 08:54 Calcium 9.1 mg/dL (8.5-10.4) 09/22/17 08:54 Visualized and Interpreted imaging results: Yes Interpretation: Pelvic x-ray demonstrating bilateral arthroplasties Assessment & Plan Assessment: Assessment: 87-year-old female presents for left hip arthroplasty secondary to osteoarthritis complicated by acute kidney injury on chronic kidney disease stage 3, acute worsening of chronic anemia Plan: 1. Acute kidney injury on chronic kidney disease stage 3. Most likely secondary to hypovolemia from poor oral intake preoperatively, patient most likely has some degree of chronic renal impairment status post her lengthy hospitalization for food poisoning, most recent serum creatinine level 1.4 on review of outside records from 09/07/2017 -preoperative creatinine 1.8 -give IV normal saline at 150 cc/hour, monitor urine output, monitor serum creatinine level -if creatinine level not improved, send fractional excretion of sodium 2. Metabolic acidosis. Acute, most likely secondary to uremia with a serum bicarbonate level of 18 and a BUN of 40 -give IV normal saline to improve renal recovery, monitor serum bicarbonate level -if patient becomes hypotensive, check lactic acid level 3. Hyperkalemia. Most likely secondary to acute kidney injury as well as concomitant use of Aldactone -Aldactone may not be a guillen choice for antihypertensive in this patient given her history of hyperkalemia and chronic kidney disease -will discontinue Aldactone -hold her other antihypertensives 4. Acute on chronic anemia. Normocytic, no history of blood loss per patient, reviewed outside records which demonstrates recent iron panel with an iron level of 101, TIBC of 350, saturation 29%, indicating that there is clearly no iron deficient component -monitor for evidence of blood loss in the left hip, repeat hemoglobin level in a.m. -should be noted that hemoglobin level of 9.8 is indicative of patient's pre surgery hemoglobin level 5. Hypertension. Chronic, holding patient's home antihypertensives as she was hypotensive postoperatively -if she becomes hypertensive, recommend initiating her home dosage of diltiazem , continuing to hold her Jamal inhibitor and Aldactone given her acute kidney injury -order outside records from Dr. Dempsey's office to determine the extent of recent outpt cardiac evaluation, BP mgmt strategy 6. Osteoarthritis. Postop day 0 from hip surgery, Dr. Phelps remains primary on this patient -pain medications as needed -bowel regiment 7. Acute atelectasis. Inspiratory crackles on exam, supplemental oxygen postoperatively, incentive spirometer needed Hospital Medicine will continue to consult in this patient's daily care.
[2017-09-22] MEDS: ceFAZolin 2 GM/DEXTROSE 100 ML IV SCH (17:52)
[2017-09-22] MEDS: ASPIRIN 81 MG CHEWABLE TAB PO SCH (20:32)
[2017-09-22] MEDS: guanFACINE HCL 1 MG TAB PO SCH (20:33)
[2017-09-22] MEDS: SENNOSIDES/DOCUSATE SODIUM TAB PO SCH (20:34)
[2017-09-22] MEDS ORDERED: DILTIAZEM CD 120 MG CAP PO SCH (21:00)
[2017-09-23] MEDS: ACETAMINOPHEN 325 MG TAB PO SCH ×5 (01:48→23:09)
[2017-09-23] MEDS: ceFAZolin 2 GM/DEXTROSE 100 ML IV SCH (02:17)
[2017-09-23] MEDS: oxyCODONE IR 5 MG TAB PO PRN ×4 (02:26→23:09)
[2017-09-23] MEDS: LEVOTHYROXINE 50 MCG TAB PO SCH (05:30)
[2017-09-23] MEDS: NS 1,000 ML IV SCH ×2 (08:41→23:08)
[2017-09-23] MEDS ORDERED: LISINOPRIL 20 MG TAB PO SCH (09:00)
[2017-09-23] MEDS ORDERED: SPIRONOLACTONE 25 MG TAB PO SCH (09:00)
[2017-09-23] MEDS: MONTELUKAST SODIUM 10 MG TAB PO SCH (09:34)
[2017-09-23] MEDS: ASPIRIN 81 MG CHEWABLE TAB PO SCH ×2 (09:34→20:39)
[2017-09-23] MEDS: FAMOTIDINE 20 MG TAB PO SCH (09:36)
[2017-09-23] MEDS: SENNOSIDES/DOCUSATE SODIUM TAB PO SCH ×2 (09:37→20:40)
--- NOTE | 2017-09-23 10:12 | SOAPPROG ---
SOMELBA Progress Note Assessment/Plan: Assessment: Breana is doing well POD 1 s/p L MARIO 1) Pain management: pain level is expected postoperatively, well controlled 2) Anemia: preop HgB 9.8. mild drop to 8.3 today, expected postop, continue to monitor for signs and symptoms of anemia. 3)VTE ppx: recommend ASA 81 mg BID. The patient tolerated this postop R MARIO several months ago despite CKD 4) CKD: Cr 1.8 preoperatively yesterday, improved to baseline Cr 1.3 today. Most likely due to poor oral fluid intake and warm temperatures lately. Appreciate hospitalist management. May stop IV fluids when hospitalist is comfortable with it and patient has adequate oral intake. 5) Hyperkalemia: resolved today. K preop 5.3 and today 4.9 6) Hypertension: appreciate hospitalist management 7) D/c planning: patient will continue to benefit from inpatient care, OT and PT. Recommend SNF. Plan: 09/23/17 10:08 Subjective: Nunu is resting comfortably in bed, denies pain, denies SOB, chest pain and n/ v. states she had poor oral fluid intake prior to surgery Objective: Vital Signs Temp Pulse Resp BP Pulse Ox 36.8 C 73 16 109/57 L 98 09/23/17 08:00 09/23/17 08:00 09/23/17 08:00 09/23/17 08:00 09/23/17 08:00 Laboratory Results 09/23/17 04:20 09/23/17 04:20 09/22/17 09/23/17 09/24/17 05:59 05:59 05:59 Intake Total 3720 Output Total 950 350 Balance 2770 -350 LLE: incision dressing is clean and dry, NVI, +pf/df ICD10 Worksheet Patient Problems: Problems Problem Status Onset Primary localized osteoarthritis of right hip Acute
[2017-09-23] MEDS: LEFLUNOMIDE 20 MG TAB PO SCH (12:29)
[2017-09-23] MEDS: LACTASE 3,000 UNIT TAB PO SCH (12:31)
--- NOTE | 2017-09-23 16:42 | GOP ---
[f rep st] OPERATIVE REPORT DATE OF OPERATION: 09/22/2017 SURGEON: Radha Phelps MD FINANCIAL INSTITUTION TREASURER: EDGARDO Vasquez ANESTHESIA: Spinal. PREOPERATIVE DIAGNOSIS: Left hip osteoarthritis. POSTOPERATIVE DIAGNOSIS: Left hip osteoarthritis. PROCEDURE PERFORMED: Left total hip arthroplasty with x-ray. FINDINGS: ESTIMATED BLOOD LOSS: 200 cc. INDICATIONS: The patient has progressively worsening arthritis of the hip which has failed medical m anagement. The patient understands the treatment options including continued non-operative care and has selected surgical intervention. The patient has decided to undergo total hip arthroplasty via th e direct anterior approach, understanding the risks of the procedure including, but not limited to, n eurovascular injury, infection, persistent pain, component wear and loosening, deep venous thrombosis , pulmonary embolism, limb length inequality, hip instability (including dislocation), and intra-oper ative fractures. DESCRIPTION OF PROCEDURE: After proper identification of the patient including verification and irwin ing the surgical site, the patient was brought to the operating room and placed in the supine positio n. All bony prominences were well padded. Anesthesia was induced without complication and intraveno us prophylactic antibiotics were administered prior to skin incision. The operative leg was placed in the Trumpf Arch table extension and the well leg in a Yellofin leg ho lder. The patient was prepped and draped in the usual sterile fashion. The C-arm was draped for int ra-operative fluoroscopy to check acetabular position, femoral component position including leg lengt h and femoral offset. Attention was then drawn to surgical exposure of the hip. An incision was made with a #10 Bard Jose r blade starting 3 cm lateral and 3 cm distal to the anterior superior iliac spine measuring 8-10 cm and coursing distally toward the greater trochanter. The skin and subcutaneous tissues were divided sharply down to the fascia giovanna. The fascia giovanna was incised in line with the skin incision exposing the underlying tensor fascia giovanna muscle. The muscle was bluntly elevated from the fascia and the f irst extracapsular Cobra retractor was placed laterally at the junction of the superior femoral neck and greater trochanter. The lateral femoral circumflex vessels were identified, cauterized, and divi ded with the Aquamantys bipolar cautery. The deep investing fascia of the TFL was divided to allow p cyndie mobilization of the muscle preventing damage during the retraction. The reflected head of the rectus femoris muscle was elevated off the anterior hip capsule and a medial Cobra retractor was plac ed just proximal to the lesser trochanter. The anterior capsulotomy was made sharply from the superolateral acetabulum to the saddle junction of the superior femoral neck and greater trochanter, then coursing inferomedial towards the lesser troc hanter. The retractors were then placed in the intracapsular position for femoral neck osteotomy. C orresponding to pre-operative templating, the osteotomy was made with the oscillating saw carefully p rotecting the greater trochanter and soft tissues. The femoral head was removed from the acetabulum with a corkscrew and confirmed to be severely arthritic with exposed bone, deformity and osteophytes. Similar findings were confirmed in the acetabulum. The Arch table extension was then placed in 40 degrees external rotation. Attention was then drawn to the acetabular preparation. After placement of the anterior and posterio r Cobra retractors outside the labrum and intracapsular, the circumferential labrum was removed sharp ly. The foveal contents were then removed and hemostasis obtained with cautery. The first reamer selected was sized using the removed femoral head. Reaming began with medialization and then commenced in 2 mm increments at 45 degrees of abduction and 15 degrees of anteversion using fluoroscopic navigation. Reaming ceased 1 mm less than the definitive acetabular component and harsh esponded to the pre-operative templating. The final acetabular component was inserted using fluorosc opy to achieve proper orientation yielding excellent purchase and stability in the acetabulum. The f inal acetabular liner was then placed and its seating confirmed. Attention was then turned to the femur. The Arch table extension was placed in extension and adducti on, delivering the osteotomized femoral neck into the wound. A 2-pronged femoral elevator was placed at the calcar and another at the tip of the greater trochanter. The posterolateral capsule was rele ased with cautery allowing mobilization of the femur lateral and anterior for preparation. The exter nal rotators were visualized and preserved. A curette and rongeur were used to open the starting poi nt for broaching. Serial broaching started with the #0 broach and ended with the broach that exhibit ed excellent fit in the proximal femur. A change in pitch during mallet strikes was accompanied by t he inability to advance the broach any further. The trial reduction was performed and fluoroscopic n avigation was utilized to check limb length. Adjustments were made to equalize limb length according ly. After the final trials were accepted they were removed and the wound was copiously lavaged. The femo ral component was seated to the same depth as the final broach and the femoral head was impacted onto the clean trunnion. The hip was then reduced for the final time and once more fluoroscopy was used to check that limb length equality was achieved. The wound was irrigated and closed in layers, the fascia giovanna with 2-0 Quill, the subcutaneous tissue with 2-0 Quill, and the skin with Dermabond. Sterile dressings were applied. Final sharps and spon ge counts were accurate. The patient was then transferred to a hospital bed and brought to the [facility] room in stable condition. IMPLANTS: Accolade II size 4 at 127. Acetabular component is a Trident II, 50 mm. Linear is a Trid ent X3, 32 mm. Head is a Biolox Delta 32 mm, +0. /[id number]/MODL
--- NOTE | 2017-09-23 19:14 | HOSPPROG ---
Hospitalist Progress Note Assessment/Plan: The patient is a 87-year-old female with PMH who was admitted for severe L hip pain/OA. ASSESSMENT/PLAN: L Hip OA, s/p L MARIO POD #1 ANNELIESE on CKD stage 3-improving, likely from prerenal azotemia Metabolic acidosis, likely secondary to kidney disease Mild hyponatremia Hyperkalemia, resolved Atelectasis Acute on chronic anemia, stable Hypertension Osteoarthritis -blood pressure medications held perioperatively. Resume when her hypertension returns. -check a.m. Labs -continue IV fluids -PT/OT/ISU. VTE prophylaxis: Start heparin. Code Status: Full code Disposition: Med surg This patient is new to me. Reviewed patient's chart/records for this visit. ____ SUBJECTIVE: Today patient feels okay. She ambulated with physical therapy a little, reported pain in her left hip OBJECTIVE: Physical Exam: General: The patient is a female who is alert and in no acute distress. HEENT: normocephalic, extraocular movements intact, conjunctivae clear. Mucous membranes moist. Neck: trachea midline, no visible masses. Abd: soft and nondistended. Musculoskeletal: Normal muscle tone/bulk. Dressing on left hip CDI. + tenderness of left hip area. Neuro: cranial nerves II XII grossly intact. Intact gross motor and sensory function. Psych: Appropriate mood and appropriate affect. Skin: No pallor. No petechiae. Heme/lymph: No peripheral edema at bilateral ankles. Labs/Imaging/Other Tests: Personally reviewed/interpreted. Objective: Vital Signs Temp Pulse Resp BP Pulse Ox 37.2 C 76 16 105/61 95 09/23/17 16:00 09/23/17 16:15 09/23/17 16:15 09/23/17 16:00 09/23/17 16:15 Laboratory Results 09/23/17 04:20 09/23/17 04:20 09/22/17 09/23/17 09/24/17 05:59 05:59 05:59 Intake Total 3720 240 Output Total 950 950 Balance 2770 -710 ICD10 Worksheet Patient Problems: Problems Problem Status Onset Primary localized osteoarthritis of right hip Acute
[2017-09-23] MEDS ORDERED: ENOXAPARIN 40 MG/0.4 ML SYR SC SCH (19:15)
[2017-09-23] MEDS: guanFACINE HCL 1 MG TAB PO SCH (20:42)
[2017-09-23] MEDS: HEPARIN 5,000 UNIT/0.5 ML INJ SC SCH (23:08)
[2017-09-23] MEDS: CYCLOBENZAPRINE 10 MG TAB PO PRN (23:11)
[2017-09-24] MEDS: oxyCODONE IR 5 MG TAB PO PRN ×3 (04:09→14:52)
[2017-09-24] MEDS: HEPARIN 5,000 UNIT/0.5 ML INJ SC SCH ×2 (05:44→14:15)
[2017-09-24] MEDS: LEVOTHYROXINE 50 MCG TAB PO SCH (05:44)
[2017-09-24] MEDS: ACETAMINOPHEN 325 MG TAB PO SCH ×3 (05:45→19:34)
[2017-09-24] MEDS: SENNOSIDES/DOCUSATE SODIUM TAB PO SCH ×2 (10:36→21:07)
[2017-09-24] MEDS: FAMOTIDINE 20 MG TAB PO SCH (10:37)
[2017-09-24] MEDS: ASPIRIN 81 MG CHEWABLE TAB PO SCH ×2 (10:37→21:07)
[2017-09-24] MEDS: LACTASE 3,000 UNIT TAB PO SCH (10:38)
[2017-09-24] MEDS: LEFLUNOMIDE 20 MG TAB PO SCH (10:38)
[2017-09-24] MEDS: MONTELUKAST SODIUM 10 MG TAB PO SCH (10:38)
--- NOTE | 2017-09-24 13:57 | SOAPPROG ---
SOMELBA Progress Note Assessment/Plan: Assessment: Breana is doing well POD 2 s/p L MARIO 1) Pain management: pain level is expected postoperatively, well controlled. 2) Anemia: preop HgB 9.8. mild drop to 8.3 today, expected postop, continue to monitor for signs and symptoms of anemia. 3)VTE ppx: recommend ASA 81 mg BID. The patient tolerated this postop R MARIO several months ago despite CKD. Hospitalist ordered SC heparin yesterday, but did not stop aspirin 81 mg BID. Due to anemia and increased risk of bleeding postoperatively, orthopedics does not recommend heparin. Discussed with Dr. Phelps. I will d/c heparin. Continue 81 mg BID for VTE ppx. I have paged hospitalist and have attempted to communicate directly regarding patient, but still awaiting return phone call. 4) CKD: Cr 1.1 today. 5) Hyperkalemia: resolved 6) Hypertension: appreciate hospitalist management 7) D/c planning: patient will continue to benefit from inpatient care, OT and PT. Recommend SNF for d/c tomorrow most likely 8) muscle spasms: mild, improved with warm blanket. flexeril did not help patient Plan: 09/23/17 10:08 09/24/17 13:54 Subjective: Nunu is resting comfortably in chair, denies SOB, chest pain and n/v. mild muscle spasms alleviated by warm blanket Objective: Vital Signs Temp Pulse Resp BP Pulse Ox 36.7 C 90 17 161/78 H 97 09/24/17 08:00 09/24/17 09:46 09/24/17 09:46 09/24/17 08:00 09/24/17 09:46 Laboratory Results 09/24/17 04:05 09/24/17 04:05 09/23/17 09/24/17 09/25/17 05:59 05:59 05:59 Intake Total 3720 740 Output Total 950 1350 400 Balance 2770 -610 -400 LLE: incision dressing is clean and dry, NVI, +pf/df ICD10 Worksheet Patient Problems: Problems Problem Status Onset Primary localized osteoarthritis of right hip Acute
--- NOTE | 2017-09-24 18:28 | HOSPPROG ---
Hospitalist Progress Note Assessment/Plan: The patient is a 87-year-old female with PMH who was admitted for severe L hip pain/OA. 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 Starting w/ lisinopril. -check a.m. Labs -a.m. Cortisol was low today. Follow-up with cosyntropin test. -DC IV fluid. -PT/OT/ISU. VTE prophylaxis: baby ASA BID per Ortho. They said they paged me, but I never received any kind of page or communication regarding VTE ppx. Code Status: Full code Disposition: Med surg This patient is new to me. Reviewed patient's chart/records for this visit. ____ SUBJECTIVE: Today patient feels okay. She ambulated with physical therapy today. Her blood pressure was high this morning, then normalized in the afternoon and was 125/77 when I saw her. OBJECTIVE: Physical Exam: General: The patient is a female who is alert and in no acute distress. HEENT: normocephalic, extraocular movements intact, conjunctivae clear. Mucous membranes moist. Neck: trachea midline, no visible masses. Abd: soft and nondistended. Musculoskeletal: Normal muscle tone/bulk. Dressing on left hip CDI. Neuro: cranial nerves II XII grossly intact. Intact gross motor and sensory function. Psych: Appropriate mood and appropriate affect. Skin: No pallor. No petechiae. Heme/lymph: No peripheral edema at bilateral ankles. Labs/Imaging/Other Tests: Personally reviewed/interpreted. A.m. Cortisols -1.9, low. Objective: Vital Signs Temp Pulse Resp BP Pulse Ox 36.6 C 90 16 151/90 H 96 09/24/17 16:00 09/24/17 16:00 09/24/17 16:00 09/24/17 18:05 09/24/17 16:00 Laboratory Results 09/24/17 04:05 09/24/17 04:05 09/23/17 09/24/17 09/25/17 05:59 05:59 05:59 Intake Total 3720 740 Output Total 458 1350 1050 Balance 3126 -581 -3778 ICD10 Worksheet Patient Problems: Problems Problem Status Onset Primary localized osteoarthritis of right hip Acute
[2017-09-24] MEDS: LISINOPRIL 20 MG TAB PO SCH (19:31)
[2017-09-24] MEDS: guanFACINE HCL 1 MG TAB PO SCH (21:07)
[2017-09-25] MEDS: ACETAMINOPHEN 325 MG TAB PO SCH ×2 (00:10→06:05)
[2017-09-25] MEDS: oxyCODONE IR 5 MG TAB PO PRN ×3 (01:59→17:16)
[2017-09-25] MEDS ORDERED: COSYNTROPIN 0.25 MG/2 ML SYRINGE IVP ONE ×2 (06:00→09:00)
[2017-09-25] MEDS: LEVOTHYROXINE 50 MCG TAB PO SCH (06:12)
[2017-09-25] MEDS ORDERED: LISINOPRIL 20 MG TAB PO SCH (09:00)
[2017-09-25] MEDS: LACTASE 3,000 UNIT TAB PO SCH (09:20)
[2017-09-25] MEDS: SENNOSIDES/DOCUSATE SODIUM TAB PO SCH ×2 (09:22→17:14)
[2017-09-25] MEDS: MONTELUKAST SODIUM 10 MG TAB PO SCH (09:23)
[2017-09-25] MEDS: LISINOPRIL 20 MG TAB PO SCH (09:25)
[2017-09-25] MEDS: FAMOTIDINE 20 MG TAB PO SCH (09:26)
[2017-09-25] MEDS: ASPIRIN 81 MG CHEWABLE TAB PO SCH (09:26)
[2017-09-25] MEDS: CYCLOBENZAPRINE 10 MG TAB PO PRN ×2 (09:27→14:27)
[2017-09-25] MEDS: LEFLUNOMIDE 20 MG TAB PO SCH (09:28)
--- NOTE | 2017-09-25 09:32 | HOSPPROG ---
Hospitalist Progress Note Assessment/Plan: 87F s/p L MARIO 09/22. # tachycardia - hx a-fib (although regular on my exam); check ECG; off dilt currently # R shoulder pain, hx RA - treatment options limited given recent L MARIO - apap for now # RA - cont leflunomide # htn - hold lisino; would preferentially restart dilt # ANNELIESE on CKD - at baseline # mild hypoNa # NAGMA d/t RTA Subjective: c/o severe pain R shoulder, difficult to move Objective: Vital Signs Temp Pulse Resp BP Pulse Ox 37.6 C 115 H 16 110/63 95 09/25/17 08:00 09/25/17 08:00 09/25/17 08:00 09/25/17 08:00 09/25/17 08:00 Laboratory Results 09/25/17 04:15 09/25/17 04:15 09/24/17 09/25/17 09/26/17 05:59 05:59 05:59 Intake Total 740 250 Output Total 1350 1350 400 Balance -610 -1100 -400 chart reviewed pelvic XR reviewed - Physical Exam Constitutional: no apparent distress, appears nourished Cardiovascular: no murmur, rub, or gallop, tachycardia Respiratory: no respiratory distress, no rales or rhonchi, clear to auscultation Gastrointestinal: soft, non-tender abdomen, no palpable masses, No guarding, No rebound, No distension ICD10 Worksheet Patient Problems: Problems Problem Status Onset Primary localized osteoarthritis of right hip Acute
[2017-09-25] MEDS: ACETAMINOPHEN 650 MG/20.3 ML UDCUP PO SCH ×3 (09:38→17:13)
--- NOTE | 2017-09-25 09:44 | SOAPPROG ---
SOAP Progress Note Assessment/Plan: Assessment: Breana is doing well POD 3 s/p L MARIO 1) Pain management: pain level is expected postoperatively, well controlled. patient denied tylenol due to difficulty swallowing, offered liquid tylenol. patient agreed. appreciate hospitalist ordering. Right shoulder pain due to RA per patient. 2) Anemia: expected postop, continue to monitor for signs and symptoms of anemia. 3)VTE ppx: recommend ASA 81 mg BID. 4) neuralgia: burning sensation most likely postop neuralgia, discussed option of gabapentin, but discussed risk of hallucinations, drowsiness. patient declined at this time. 5) Hyperkalemia: resolved 6) Hypertension: appreciate hospitalist management 7) D/c planning: d/c to SNF 8) muscle spasms: mild, improved with warm blanket. flexeril did not help patient Plan: 09/23/17 10:08 09/24/17 13:54 09/25/17 09:40 09/25/17 09:43 Subjective: mild pain, burning sensation around incision, right shoulder pain Objective: Vital Signs Temp Pulse Resp BP Pulse Ox 37.6 C 115 H 16 110/63 95 09/25/17 08:00 09/25/17 08:00 09/25/17 08:00 09/25/17 08:00 09/25/17 08:00 Laboratory Results 09/25/17 04:15 09/25/17 04:15 09/24/17 09/25/17 09/26/17 05:59 05:59 05:59 Intake Total 740 250 Output Total 1350 1350 400 Balance -610 -1100 -400 LLE: incision dressing is clean and dry, NVI, +pf/df ICD10 Worksheet Patient Problems: Problems Problem Status Onset Primary localized osteoarthritis of right hip Acute
--- NOTE | 2017-09-25 09:49 | PDIAF ---
- Diagnosis Diagnosis: left MARIO Code Status: Full Code - Medication Management Discharge Medications: Medications to Continue on Transfer Albuterol [Proventil Inhaler HFA (*)] 1 - 2 puffs IH DAILY PRN 03/09/17 [Last Taken 09/15/17] Diltiazem Cd [Cardizem ER 120 MG (*)] 120 mg PO BID 03/09/17 [Last Taken ] Leflunomide [Arava 20 mg (*)] 20 mg PO DAILY 03/09/17 [Last Taken 09/22/17] Levothyroxine [Synthroid 50 mcg (*)] 50 mcg PO DAILY06 03/09/17 [Last Taken ] Lisinopril [Zestril 20 mg (*)] 20 mg PO DAILY 03/09/17 [Last Taken 09/22/17] Montelukast Sodium [Singulair 10 mg (*)] 10 mg PO DAILY 03/09/17 [Last Taken 02/27] Multivitamins [Multivitamin (*)] 1 each PO DAILY 03/09/17 [Last Taken 09/13/17] guanFACINE HCL [Guanfacine HCl 1 MG (*)] 1 mg PO HS 03/09/17 [Last Taken ] Cholecalciferol Vit D3 [Vitamin D3 (*)] 1,000 units PO DAILY 09/08/17 [Last Taken 09/13/17] Herbals/Supplements -Info Only 1 each PO DAILY 09/08/17 [Last Taken 09/13/17] Lactase [Lactase 3000 Unit (*)] 3,000 unit PO DAILY 09/08/17 [Last Taken ] Spironolactone [Aldactone 25 MG (*)] 25 mg PO DAILY 09/08/17 [Last Taken ] Acetaminophen [Tylenol 650/20.3ML Oral Liq (*)] 650 mg PO Q6H udcup 09/25/17 [ Last Taken Unknown] Aspirin [Aspirin 81mg (*)] 81 mg PO BID tab.chew 09/25/17 [Last Taken Unknown] Cyclobenzaprine [Flexeril 10 MG (*)] 10 mg PO Q8HRS PRN tab 09/25/17 [Last Taken Unknown] Famotidine [Pepcid 20 MG (*)] 10 mg PO DAILY tab 09/25/17 [Last Taken Unknown] Polyethylene Glycol 3350 [Miralax 17 gm (*)] 17 gm PO DAILY PRN pkt 09/25/17 [ Last Taken Unknown] Sennosides/Docusate Sodium [Senokot-S] 1 - 2 tab PO BID tab 09/25/17 [Last Taken Unknown] oxyCODONE IR [Oxycodone Ir (*)] 5 - 10 mg PO Q3HRS PRN tab 09/25/17 [Last Taken Unknown] Discharge Medications: Refer to the Discharge Home Medication list for PRN reason. - Orders Diet Recommendation: no restrictions on diet Diet Texture: Regular Texture Diet Additional Instructions: Joint Protocol-Hip Replacement Follow up with Dr. Harden office as scheduled recommend scheduled tylenol, patient has difficulty swallowing pills, so recommend liquid tylenol After surgery instructions: Take Aspirin 81mg by mouth morning and evening for 4 weeks (helps to prevent blood clots) Wear thigh high BIBIANA hose on both legs during the daytime for 2 weeks (helps to prevent blood clots and decrease swelling in the surgical leg). It is ok to remove BIBIANA hose at night time to give your legs a break. It is common for swelling and bruising to occur in the entire surgical leg even extending to the foot, if concerned call Dr. Collier office [phone] Weight bearing as tolerated Use a walker for 14-21 days Do exercises in the book 2-3 times a day Ice at least 3-5 times a day for 30 minutes each time, if not more often. ~~If you have further questions that are not addressed here, please look at the information packet handed to you at the preop appointment. ~Most will be answered on the FAQs, after surgery instructions and incision care pages. ~You may also call Dr. Harden office with questions as well. *IF YOU HAVE A LIFE THREATENING EMERGENCY, CALL 911. FOR NON-LIFE THREATENING ISSUES, PLEASE CALL DR. HARDEN OFFICE FIRST. A PHYSICIAN IS COMMERCIAL DEVELOPMENT MANAGER 03/10. Incision/Dressing Care: May shower tomorrow, Incision dressing is waterproof. Do not soak in water, but shower is ok. Keep the incision (rivas) dressing clean and dry. If the incision dressing gets soiled or wet underneath, change dressing to the dressing given to you by the hospital. (rivas dressing will turn black if drainage occurs) Remove incision dressing (rivas one) two weeks after surgery. ~Leave steri strips alone. ~They will fall off on their own. Do not have anyone else remove the incision dressing prior to the stated recommendation (2 weeks after surgery). ~If there are incision concerns, contact Dr. Collier office. ~(Melanie or Dr. Phelps may remove earlier if concerns arise) If incision site (rivas dressing) has drainage, call Dr. Collier office, [phone]. ~Melanie and Dr. Phelps may ask you to come into the office for further evaluation neuralgia: offered gabapentin, but due to risk of mental side effects decided to avoid at this time - Follow Up Care Current Providers and Referrals: Julia Miller MD [Primary Care Provider] - Melanie Phelps PA [Physician Ground Support Equipment Fitter] -
--- NOTE | 2017-09-25 10:22 | CPEKG ---
Heart Rate: 108 RR Interval: 556 P-R Interval: 117 QRSD Interval: 78 QT Interval: 324 QTC Interval: 435 P [place]: 0 QRS [place]: 48 T Wave [place]: 3 EKG Severity - BORDERLINE ECG - EKG Impression: SINUS TACHYCARDIA WITH IRREGULAR RATE 74-160 EKG Impression: LOW VOLTAGE IN FRONTAL LEADS EKG Impression: BORDERLINE T WAVE ABNORMALITIES EKG Impression: FREQUENT AND CONSECUTIVE PAC'S Electronically Signed By: Ryne Moraes 27-Sep-2017 12:03:45
[2017-09-25] MEDS: DILTIAZEM 60 MG TAB PO SCH ×2 (13:53→17:13)
--- NOTE | 2017-09-25 15:02 | ASMTLACE ---
LACE Length of stay for Answers: 3 days current admission Acuity / Level of Answers: Yes Care: Did the patient have an inpatient admission? Comorbidities - select Answers: Other Notes: arthritis, asthma, HTN, os all that apply teopenia, rheumatoid arthritis # of Emergency department Answers: 1-2 visits in the last 6 months Score: 8 Date Signed: 09/25/2017 03:01 PM Electronically Signed By:LUIS ANTONIO Casiano
--- NOTE | 2017-09-25 15:34 | PDIAF ---
- Diagnosis Diagnosis: left MARIO Code Status: Full Code - Medication Management Discharge Medications: Medications to Continue on Transfer Albuterol [Proventil Inhaler HFA (*)] 1 - 2 puffs IH DAILY PRN 03/09/17 [Last Taken 09/15/17] Diltiazem Cd [Cardizem ER 120 MG (*)] 120 mg PO BID 03/09/17 [Last Taken ] Leflunomide [Arava 20 mg (*)] 20 mg PO DAILY 03/09/17 [Last Taken 09/22/17] Levothyroxine [Synthroid 50 mcg (*)] 50 mcg PO DAILY06 03/09/17 [Last Taken ] Montelukast Sodium [Singulair 10 mg (*)] 10 mg PO DAILY 03/09/17 [Last Taken 02/27] Multivitamins [Multivitamin (*)] 1 each PO DAILY 03/09/17 [Last Taken 09/13/17] guanFACINE HCL [Guanfacine HCl 1 MG (*)] 1 mg PO HS 03/09/17 [Last Taken ] Cholecalciferol Vit D3 [Vitamin D3 (*)] 1,000 units PO DAILY 09/08/17 [Last Taken 09/13/17] Herbals/Supplements -Info Only 1 each PO DAILY 09/08/17 [Last Taken 09/13/17] Lactase [Lactase 3000 Unit (*)] 3,000 unit PO DAILY 09/08/17 [Last Taken ] Spironolactone [Aldactone 25 MG (*)] 25 mg PO DAILY 09/08/17 [Last Taken ] Acetaminophen [Tylenol 650/20.3ML Oral Liq (*)] 650 mg PO Q6H udcup 09/25/17 [ Last Taken Unknown] Aspirin [Aspirin 81mg (*)] 81 mg PO BID tab.chew 09/25/17 [Last Taken Unknown] Cyclobenzaprine [Flexeril 10 MG (*)] 10 mg PO Q8HRS PRN tab 09/25/17 [Last Taken Unknown] Famotidine [Pepcid 20 MG (*)] 10 mg PO DAILY tab 09/25/17 [Last Taken Unknown] Polyethylene Glycol 3350 [Miralax 17 gm (*)] 17 gm PO DAILY PRN pkt 09/25/17 [ Last Taken Unknown] Sennosides/Docusate Sodium [Senokot-S] 1 - 2 tab PO BID tab 09/25/17 [Last Taken Unknown] oxyCODONE IR [Oxycodone Ir (*)] 5 - 10 mg PO Q3HRS PRN tab 09/25/17 [Last Taken Unknown] Discharge Medications: Refer to the Discharge Home Medication list for PRN reason. - Orders Diet Recommendation: no restrictions on diet Diet Texture: Regular Texture Diet Additional Instructions: Joint Protocol-Hip Replacement Follow up with Dr. Harden office as scheduled recommend scheduled tylenol, patient has difficulty swallowing pills, so recommend liquid tylenol After surgery instructions: Take Aspirin 81mg by mouth morning and evening for 4 weeks (helps to prevent blood clots) Wear thigh high BIBIANA hose on both legs during the daytime for 2 weeks (helps to prevent blood clots and decrease swelling in the surgical leg). It is ok to remove BIBIANA hose at night time to give your legs a break. It is common for swelling and bruising to occur in the entire surgical leg even extending to the foot, if concerned call Dr. Collier office [phone] Weight bearing as tolerated Use a walker for 14-21 days Do exercises in the book 2-3 times a day Ice at least 3-5 times a day for 30 minutes each time, if not more often. ~~If you have further questions that are not addressed here, please look at the information packet handed to you at the preop appointment. ~Most will be answered on the FAQs, after surgery instructions and incision care pages. ~You may also call Dr. Harden office with questions as well. *IF YOU HAVE A LIFE THREATENING EMERGENCY, CALL 911. FOR NON-LIFE THREATENING ISSUES, PLEASE CALL DR. HARDEN OFFICE FIRST. A PHYSICIAN IS NIGHT CLERK 03/10. Incision/Dressing Care: May shower tomorrow, Incision dressing is waterproof. Do not soak in water, but shower is ok. Keep the incision (rivas) dressing clean and dry. If the incision dressing gets soiled or wet underneath, change dressing to the dressing given to you by the hospital. (rivas dressing will turn black if drainage occurs) Remove incision dressing (rivas one) two weeks after surgery. ~Leave steri strips alone. ~They will fall off on their own. Do not have anyone else remove the incision dressing prior to the stated recommendation (2 weeks after surgery). ~If there are incision concerns, contact Dr. Collier office. ~(Melanie or Dr. Phelps may remove earlier if concerns arise) If incision site (rivas dressing) has drainage, call Dr. Collier office, . ~Melanie and Dr. Phelps may ask you to come into the office for further evaluation neuralgia: offered gabapentin, but due to risk of mental side effects decided to avoid at this time - Follow Up Care Current Providers and Referrals: Melanie Phelps PA [Physician Dag Sprayer] - Julia Miller MD [Primary Care Provider] -
--- NOTE | 2017-09-25 15:47 | ASMTCMCOM ---
CM Note CM Note Notes: Pt medically stable for d/c to [facility]. Orders sent in Allscripts. REMINGTON Tobar to call report. R[facility]ana with [facility] scheduled [facility] ( to pay per Roxana) transport for 19:30. Date Signed: 09/25/2017 03:47 PM Electronically Signed By:LUIS ANTONIO Casiano
[2017-09-25 16:12] VITALS: BP 113/62
--- NOTE | 2017-09-26 10:13 | ASDISCHSUM ---
Discharge Information Plan Status:SNF Medically Cleared to Leave: Discharge Date:09/25/2017 05:33 PM CM D/C Disposition:[facility] ADT D/C Disposition:[facility] Projected Discharge Date:09/25/2017 11:00 AM Transportation at D/C:Wheelchair Van Discharge Delay Reason: Follow-Up Date:09/25/2017 11:00 AM Discharge Slot: Final Diagnosis: Placement Information Referral Type:*Shelter/SNF Referral ID:[id number] Provider Name:[facility]//[facility] Address 1:[address] [place] [address] Address 2: City:[place] Selection Factors: State:[place] Patient Contact Information Contact Name:SETH Relationship:Mai Address: Work Phone: City: 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 Phelps. Dr. Harden' PA, Melanie, asked that case management reach out to Nunu prior to surgery: Nunu is 87 years old and lives alone in a home in [place]. She has had a prior hip surgery with Dr. Phelps and was previously discharged to [facility]. Nunu stated she would like to discharge again to [facility]. Her first experience their was great -- Nunu described good care, kind people, and convenience for her grandson to visit. I spoke to Nunu about other SNF options such as [facility], however, she was insistent that [facility] is her first choice of facilities. Date Signed: 09/19/2017 09:29 AM Electronically Signed By:Svitlana Alvarado LACE LACE Length of stay for Answers: 3 days current admission Acuity / Level of Answers: Yes Care: Did the patient have an inpatient admission? Comorbidities - select Answers: Other Notes: arthritis, asthma, HTN, os all that apply teopenia, rheumatoid arthritis # of Emergency department Answers: 1-2 visits in the last 6 months Score: 8 Date Signed: 09/25/2017 03:01 PM Electronically Signed By:LUIS ANTONIO Casiano [facility] Progress Note CM Note CM Note Notes: Pt s/p L MARIO. PT rec SNF, pt SNF choice is [facility] where she has been in the past. Referral sent in [employer]scripts. [facility] which will not be obtained (the earliest) until Monday. CM to follow. Date Signed: 09/22/2017 04:48 PM Electronically Signed By:LUIS ANTONIO Casiano [facility] Progress Note CM Note CM Note Notes: Pt medically stable for d/c to [facility]. Orders sent in Allscripts. REMINGTON Tobar to call report. Roxana with [facility] scheduled [facility] ([facility] to pay per Roxana) transport for 19:30. Date Signed: 09/25/2017 03:47 PM Electronically Signed By:LUIS ANTONIO Casiano Intervention Information Intervention Type:*IM-Signed Date of Service:09/25/2017 10:15 AM Patient Type:Inpatient Staff Member:Svitlana Alvarado Hours: Discipline: Severity: Comment:
--- NOTE | 2017-09-29 02:49 | GDS ---
[f rep st] DISCHARGE SUMMARY ADMISSION DIAGNOSIS: Left hip osteoarthritis. DISCHARGE DIAGNOSIS: Left hip osteoarthritis. PROCEDURE: Left total hip arthroplasty. VTE PROPHYLAXIS: Recommend aspirin 81 mg twice daily for 4 weeks. BRIEF DESCRIPTION OF HOSPITAL STAY: Patient was admitted for an elective joint arthroplasty. The pa tient tolerated the procedure well and has passed physical therapy. The patient was given appropriat e antibiotic prophylaxis and venous thromboembolism prophylaxis. The patient's pain was well control led on oral pain medication, patient was holding down food, and had urinated. Decision was made to d ischarge the patient. The patient was given post-operative prescriptions pre-operatively. PLAN: To follow up as scheduled at Dr. Phelps's office on October 12 at 3 p.m. /[id number]/MODL
== END 2017-09-25 17:33 | DRG 470 ==
LOC: F3N 07:48
PROVIDERS: ADMIT Orthopaedic Surgery; ATTEND Orthopaedic Surgery
PROC: 0SRB04Z Replacement of Left Hip Joint with Ceramic on Polyethylene Synthetic Substitute, Open Approach (ICD-10-PCS; principal; 2017-09-22 10:15)
DX: M16.12 Unilateral primary osteoarthritis, left hip (principal); E87.1 Hypo-osmolality and hyponatremia; E87.5 Hyperkalemia; E87.2 Acidosis; N17.9 Acute kidney failure, unspecified; I12.9 Hypertensive chronic kidney disease with stage 1 through stage 4 chronic kidney disease, or unspecified chronic kidney disease; N18.3 Chronic kidney disease, stage 3 (moderate); D64.9 Anemia, unspecified; M06.9 Rheumatoid arthritis, unspecified; E03.9 Hypothyroidism, unspecified; M85.80 Other specified disorders of bone density and structure, unspecified site; Z87.891 Personal history of nicotine dependence; Z96.641 Presence of right artificial hip joint
CPT/HCPCS: 97110-GP; 97116-GP; 97161-GP; 97166-GO; 97530-GO; 97535-GO; G8978-GP-CK; G8979-GP-CI; J0171; J0690; J0834; J1100; J1644; J2250; J2704; J2795; J3010